=== PATIENT | male | born 1945 ===

== ENCOUNTER 2021-08-25 10:33 | Outpatient (CLI) | payer MEDICARE ==
--- NOTE | 2021-08-25 12:38 | Fluoroscopy Report ---
MODIFIED BARIUM SWALLOW INDICATION: DYSPHAGIA TECHNIQUE: Swallowing was evaluated in the lateral position under direct fluoroscopy. FINDINGS: The patient was evaluated with thin liquid, nectar, honey, puree and semisolid consistenci es.. Silent aspiration was witnessed with thin liquids and nectar consistencies. Mild vallecular residuals were seen with all consistencies which cleared with additional swallows/chin tilt. No aspiration wit h honey, puree and semisolid consistencies. IMPRESSION: Silent aspiration was witnessed with thin liquids and nectar. Mild vallecular residuals. Fluoroscopic time: 2.5 minutes Number of fluoroscopic images: 3 Signer Name: Umberto Anderson Jr, MD Signed: 08/25/2021 12:34 PM Workstation Name: [id number]
== END 2021-08-25 10:34 | disposition home or self-care (01) ==
LOC: PT 10:33
DX: R13.12 Dysphagia, oropharyngeal phase (principal)
CPT/HCPCS: 74230